=== PATIENT | female | born 1965 | race Caucasian/White ===

== ENCOUNTER 2017-03-25 08:32 | Emergency (ER) | payer SELFPAY ==
--- NOTE | ~2017-03-25 | ER ---
PATIENT'S NAME: GINA PHOEBE [facility] AGE: 51 Y [address] ROOM: [place] [id number] LOCATION: [facility] ADMIT DATE: 03/25/2017 ER/Outpatient Report DISCHARGE DATE: 03/25/2017 FAMILY PHYSICIAN: Physician, Unknown ATTENDING PHYSICIAN: Manfred Kim CHIEF COMPLAINT: Cat bite to the left hand. HISTORY OF PRESENT ILLNESS: Ms. Fuentes presents for evaluation of cat bite to the left hand. The injury was sustained on . It was particularly bad yesterday, but is still bothering her some today. She cleaned it initially with peroxide and has been taken some [id number] discomfort medication to try to make it feel better. Otherwise, no other issues. Otherwise doing okay. Not up to date on tetanus. Cat is domestic, has been with family since it was a kitten and has not had any immunizations. The cat otherwise acting appropriately. It appears to have been a provoked attack although unintentional. PAST MEDICAL HISTORY: Documented on the record and reviewed by me. SOCIAL HISTORY: Documented on the record and reviewed by me. MEDICATIONS: Documented on the record and reviewed by me. ALLERGIES: DOCUMENTED ON THE RECORD AND REVIEWED BY ME. REVIEW OF SYSTEMS: All systems were reviewed and negative except as noted in the HPI. PHYSICAL EXAMINATION: VITAL SIGNS: Blood pressure is 156/96, pulse 59, respiratory rate 20, temperature 97.9, and SpO2 is 96% on room air. Pain is rated at 3/10. GENERAL: An age appropriate female, in no obvious pain or distress, upright on exam table. NEUROLOGIC: Awake and alert. GCS is 15. No obvious abnormalities. HEENT: Normocephalic and atraumatic, otherwise unremarkable. CHEST: Even and unlabored respirations. PATIENT'S NAME: ALICE FUENTES [facility] AGE: 51 Y [address] ROOM: [place] [address] LOCATION: [facility] ADMIT DATE: 03/25/2017 ER/Outpatient Report DISCHARGE DATE: 03/25/2017 FAMILY PHYSICIAN: Physician, Unknown ATTENDING PHYSICIAN: Manfred Kim HEART: Regular rate. ABDOMEN: Benign. BACK: Normal to inspection. EXTREMITIES: Left wrist and hand are reviewed and compared to contralateral side. Edema into the dorsum of the palm, most notable on the lateral aspects. There appears to be 4 specific wounds. Three on the lateral aspect of the hand and more distally on the dorsum, do not appear to have any abnormalities, however, the most proximate on the dorsum of the hand appears to have a slight area of infection and cellulitis. It is not particularly warm. Manipulation of the extensor mechanism does not produce any discomfort whatsoever. The fingers are all neurovascularly intact otherwise. SKIN: Otherwise intact. LABORATORY DATA AND X-RAYS: Plain films of the hand do not reveal any foreign bodies. IMPRESSION: Cat bite to the left hand. EMERGENCY DEPARTMENT COURSE: The patient was seen and evaluated as above. Known cat and the patient has opted to forego rabies vaccination and treatment at this time and will observe the cat. The patient's tetanus status was updated. X-rays exclude foreign body. Based on physical exam, I do not think she has any involvement of the tendon or deep structures of the hand. Minimally tender to palpation. The area was ultrasounded. There were no obvious confined abscesses. The patient was doing well. We will start her on Augmentin and have her follow up if not significantly improved in 48 hours. All questions answered, and the patient discharged with basic wound care instructions. MD FAVIOLA GARCIA/dalton /[id number] d: 03/25/17 1136 t: 04/11/17 0859, OUTPATIENT REPORT
== END 2017-03-25 09:50 | disposition disaster alternative care site (69) ==
LOC: GMED 08:32
DX: S61.452A Open bite of left hand, initial encounter (principal); I10 Essential (primary) hypertension; E11.9 Type 2 diabetes mellitus without complications; Z23 Encounter for immunization; Z79.84 Long term (current) use of oral hypoglycemic drugs; Z79.899 Other long term (current) drug therapy; W55.01XA Bitten by cat, initial encounter